=== PATIENT | male | born 1955 | race Caucasian/White ===

== ENCOUNTER → 2021-05-12 | Outpatient (CLI) | payer OTHER ==
[~2021-05-12] MED LIST: LIPITOR 20 MG T20 M1 PO
== END ==
LOC: CAT 08:22
PROVIDERS: ATTEND Family Medicine
DX: Z13.6 Encounter for screening for cardiovascular disorders (principal); E78.00 Pure hypercholesterolemia, unspecified; I25.10 Atherosclerotic heart disease of native coronary artery without angina pectoris

== ENCOUNTER → 2021-05-13 | Outpatient (CLI) | payer OTHER, MEDICARE ==
[2021-05-13 09:04] VITALS: BP 104/66
[2021-05-13 09:29] VITALS: BP 105/73
[2021-05-13 09:35] VITALS: BP 105/73
--- NOTE | 2021-05-13 09:35 | NUR ---
HERE FOR 1ST EVER THERAPEUTIC PHLEBOTOMY FOR ELEVATED HGB; HGB ON 05/05/21 WAS 18.2. ONE FULL UNIT OBTAINED FROM LEFT AC, GOOD FLOW, HEMOSTASIS OBTAINED, VSS POST. REVIEWED POST THERAPEUTIC PHLEBOTOMY INSTRUCTIONS WITH PT AND ADVISED PT TO CALL DR. NASSAR'S OFFICE TO SEE WHAT IS EXPECTED NEXT--F/U LABS? POSSIBLE FUTURE PHLEBOTOMY? PT VERBALIZES UNDERSTANDING. DRANK A FULL GLASS OF WATER PRIOR. DISMISSED IN STABLE CONDITION.
== END ==
LOC: OPONC 08:50
PROVIDERS: ATTEND Family Medicine
DX: D58.2 Other hemoglobinopathies (principal)
CPT/HCPCS: 95100